=== PATIENT | female | born 2005 | race Caucasian/White ===

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

== ENCOUNTER 2024-12-16 10:48 | Outpatient (CLI) | payer OTHER, SELFPAY ==
--- NOTE | ~2024-12-16 | XR_ITS ---
XR hand LT 2V 12/16/2024 10:57 INDICATION: Left thumb pain PROCEDURE: 2 views left hip COMPARISON: No prior studies for comparison. FINDINGS: Fracture, dislocation or subluxation is not identified. The soft tissues appear within norm al limits. No foreign bodies are identified. IMPRESSION: 1: NO ACUTE BONE OR JOINT ABNORMALITY IDENTIFIED. Reviewed, dictated and finalized at location A.
--- OUTSIDE RECORDS SUMMARY | 2024-12-16 11:21 | XMS_ITS | Clinical Summary ---
Author Organization [facility] Address [address] [place] [id number] Care Team Providers Care Monotype Operator Name Role Phone No, Physician Primary Care Provider [phone] Allergies No known active allergies Medications multivitamin tablet Take 1 tablet by mouth 3 (three) times a day with meals Active meloxicam (MOBIC) 7.5 mg tablet Take 1 tablet (7.5 mg total) by mouth daily 30 tablet 08/10/2023 Active Active Problems Problem Noted Date Diagnosed Date Back pain 08/10/2023 Acute pain of left knee 04/03/2017 Plantar fasciitis, right 08/29/2016 Foot injury, left, initial encounter 09/23/2015 Sprain of hand 05/20/2015 Wgos-hx-asvu spots 03/12/2013 Hyperopia 03/12/2013 Immunizations Immunization Administration Dates Next Due DTaP / HiB / IPV 01/30/2009 DTaP 5 Pertussis 12/14/2005, 5,01/10/2005,11/07 HPV9 12/20/2018,12/13/2017 Hep A, Pediatric 09/13/2006,12/14/2005 Hep B, Adolescent or Pediatric 5,01/10/2005,2004,09/10 Hib (PRP-T) 12/14/2005,01/10/2005,2004 IPV 03/09/2005,01/10/2005,2004 Influenza LAIV (Nasal) 12/28/2012 Influenza, Quadrivalent, Spl it, Preservative Free, Intramuscular 02/07/2022,01/27/2021 Influenza, Trivalent, IM (MDV) 0,01/30/2009,03/28/2008,03/19,03/15/2006 MMR 01/30/2009,09/25/2005 Meningococcal A,C,W,Y-TT (Ak a Menquadfi) 01/27/2021 Meningococcal B, OMV (Bexsero) 02/07/2022 Meningococcal MCV4P (Menactra) 01/11/2016 Pneumococcal Conjugate 7-Valent 09/26/19 06,03/09/2005,01/10/2005,11/07 Tdap 01/11/2016 Varicella 01/30/2009,09/25/2005 Family History Medical History Relation Name Comments Arthritis Mother Family history of arthritis - (Added by TW Conv) Relation Name Status Comments Mother Social History Tobacco Use Types Packs/Day Years Used Date Smoking Tobacco: Never Tobacco Cessation:Counseling Given: Not Answered Comments Unknown Sex and Gender Information Value Date Recorded Sex Assigned at Not on file 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 Gender Identity Not on file Sexual Orientation Not on file Obstetrics History Plan of Treatment Health Maintenance Due Date Last Done Comments Depression Screening 2004 Hepatitis C Screening 2004 Meningococcal B Vaccine (2 o f 2 - Bexsero SCDM 2-dose series) 08/07/2022 02/07/2022 Regular Well Visit/Exam 18-64 2022 Covid-19 Vaccine (3 - 2023-2 5 season) 2024 03/11/2021, 02/16/2021 Influenza Vaccine (#1) 2025 , 01/27/2021, 12/28/2012, Additional history exists DTaP/Tdap/Td Vaccine (7 - Td or Tdap) 01/10/2026 01/11/2016, 01/30/2009, 12/14/2005, Additional history exists Hepatitis B Screening Completed 03/09/2005 , 01/10/2005, 2004, Additional history exists Pneumococcal vaccine <65 Completed 006, 03/09/2005, 01/10/2005, Additional history exists Varicella Vaccines Completed 01/30/2009, 09/25/2005 HPV Vaccines Completed 12/20/2018, 12/13/2017 Meningococcal Vaccine Completed 01/27/2021, [address] [facility] Care Teams Monotype Operator Relationship Specialty Start Date End Date No, Physician PCP - General 08/02/23
--- OUTSIDE RECORDS SUMMARY | 2024-12-16 11:21 | XMS_ITS | Clinical Summary ---
Author Organization [facility] Address [address] [place] [address] Care Team Providers Care Linen Worker Name Role Phone Ariel Viera MD Primary Care Provider [phone] Source Comments [facility],non-owned Affiliates and Associated Physician Practices is amultiple site organization consisting of ambulatory clinics and hospital sitesin [place], [place], [place] and [place]. This disclosure is being madepursuant to the Care Everywhere program and may not contain all information available regarding this patient. Last updated 18.[facility] Allergies No known active allergies Medications * Be aware that medications may not be up to date on this document. Alwaysverify current medications with the patient. multivitamin daily (THERAGRAN) tablet Take 1 Tab by mouth daily with food. Active Acetaminophen 160 MG Active ibuprofen (MOTRIN) 200 MG tablet Take by mouth every 6 hours as needed for Pain Active naproxen sodium (ALEVE) 220 MG tablet Take 220 mg by mouth 2 times daily Active meloxicam (MOBIC) 15 MG tabletIndication s:Iliotibial band syndrome, unspecified laterality Take 1 (one) tablet by mouth once daily 30 tablet 3 06/10/2021 Active Active Problems Problem Noted Date Diagnosed Date Acute pain of left knee 04/03/2017 Plantar fasciitis, right 08/29/2016 Foot injury, left, initial encounter 09/23/2015 Hyperopia 03/12/2013 Mimi-yq-tgav spots 03/12/2013 Resolved Problems Problem Noted Date Diagnosed Date Resolved Date Fracture, supracondylar, elbow, left, closed 1 06/29/2010 Arm fracture, right 06/28/2010 06/29/19 11 Family History Medical History Relation Name Comments Diabetes Other Glaucoma Other Amblyopia Neg Hx Blindness Neg Hx Cataract Neg Hx Retinal Detachment Neg Hx Strabismus Neg Hx Relation Name Status Comments Other Social History Tobacco Use Types Packs/Day Years Used Date Smoking Tobacco: Never Passive Smoke Exposure: Never Smokeless Tobacco: Never Tobacco Cessation:Counseling Given: Not Answered Alcohol Use Standard Drinks/Week Comments No 0 (1 standard drink = 0.6 oz pur e alcohol) Comments No Sex and Gender Information Value Date Recorded Sex Assigned at Not on file Legal Sex Female 5:44 AM OVEN LABORER Gender Identity Not on file Sexual Orientation Not on file Last Filed Vital Signs Vital Sign Reading Time Taken Comments Blood Pressure 108/62 05/27/2018 11:05 AM OVEN LABORER Pulse 60 05/27/2018 11:05 AM OVEN LABORER Temperature 36.8 C (98.2 F) 05/27/2018 11:05 AM OVEN LABORER Respiratory Rate 20 05/27/2018 11:05 AM OVEN LABORER Oxygen Saturation 100% 05/27/2018 11:05 AM OVEN LABORER Inhaled Oxygen Concentration - - Weight 58.6 kg (129 lb 3 oz) 03/21/2022 8:54 AM OVEN LABORER Height 167.4 cm (5' 5.91) 03/21/2022 8:54 AM CS T Body Mass Index 20.91 03/21/2022 8:54 AM OVEN LABORER Plan of Treatment Health Maintenance Due Date Last Done Comments HIV SCREENING 09/10/2019 HPV VACCINE (1 - 3-dose series) 09/10/2019 CHLAMYDIA/GONORRHEA SCREENING 2020 MENINGOCOCCAL (Group B) VACC INE SHARED DECISION-MAKING (1 of 2 - Standard) 2020 HEPATITIS C SCREENING 09/05/2022 DTAP/TDAP/TD VACCINES (1 - Tdap) 09/10/2023 HEPATITIS B VACCINE (1 of 3 - 19+ 3-dose series) 09/10/2023 COVID-19 VACCINE (1 - 2024-2 5 season) 2024 DEPRESSION SCREENING 05/14/2024 INFLUENZA VACCINE (#1) 2025 ZOSTER VACCINE (1 of 2) 2054 HIB VACCINE Aged Out No longer eligi ble based on patient's age to complete this topic MENINGOCOCCAL GROUPS A/C/Y/W VACCINE Aged Out No longer eligible b ased on patient's age to complete this topic PNEUMOCOCCAL VACCINE Aged Out No long er eligible based on patient's age to complete this topic Insurance [facility] CARE [facility] CARE [facility] CARE Care Teams Linen Worker Relationship Specialty Start Date End Date Ariel Viera MD [address] [place] [phone] PCP - General 06/12/10
--- OUTSIDE RECORDS SUMMARY | 2024-12-16 11:21 | XMS_ITS | Referral Summary ---
Author Organization [facility] Address [address] [place] [id number] Care Team Providers Care Blood Donor Unit Assistant Name Role Phone No, Physician Primary Care Provider [phone] Allergies No known active allergies Medications multivitamin [...] initial encounter 09/23/2015 Sprain of hand 05/20/2015 Viqg-lu-bhos spots 03/12/2013 Hyperopia 03/12/2013 Immunizations Immunization Administration Dates Next Due DTaP / HiB / IPV 01/30/2009 DTaP 5 Pertussis 12/14/2005, 5,01/10/2005,11/07 HPV9 12/20/2018,12/13/2017 Hep A, Pediatric 09/13/2006,12/14/2005 Hep B, Adolescent or Pediatric 5,01/10/2005,2004,09/10 Hib (PRP-T) 12/14/2005,01/10/2005,2004 IPV 03/09/2005,01/10/2005,2004 Influenza LAIV (Nasal) 12/28/2012 Influenza, Quadrivalent, Spl it, Preservative Free, Intramuscular 02/07/2022,01/27/2021 Influenza, Trivalent, IM (MDV) 0,01/30/2009,03/28/2008,03/19,03/15/2006 MMR 01/30/2009,09/25/2005 Meningococcal A,C,W,Y-TT (Ak gabino Menquadfi) 01/27/2021 Meningococcal B, OMV (Bexsero) 02/07/2022 Meningococcal MCV4P (Menactra) 01/11/2016 Pneumococcal Conjugate 7-Valent 09/26/19 06,03/09/2005,01/10/2005,11/07 Tdap 01/11/2016 Varicella 01/30/2009,09/25/2005 Social History Tobacco Use Types Packs/Day Years Used Date Smoking Tobacco: Never Tobacco Cessation:Counseling Given: Not Answered Comments Unknown Sex and Gender Information Value Date Recorded Sex Assigned at Not on file 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
== END 2024-12-16 10:49 | disposition home or self-care (01) ==
LOC: ANHBWCIMG 10:51
PROVIDERS: PCP Pediatrics; Visit Provider Nurse Practitioner Pediatrics
DX: M79.645 Pain in left finger(s) (principal)
CPT/HCPCS: 73120